=== PATIENT | male | born 1950 | race Caucasian/White ===

== ENCOUNTER 2020-02-14 10:06 | Observation (INO) ==
--- NOTE | 2020-01-12 09:48 | PAT Medication Instructions ---
Medication Instructions Date of Service January 12, 2020 Home Medications aspirin [Aspir-81] 81 mg PO Q OTHER DAY atorvastatin 10 mg PO PM cholecalciferol (vitamin D3) [Vitamin D3] 50 mcg PO PM coenzyme Q10 [Co Q-10] 100 mg PO PM lisinopril-hydrochlorothiazide 1 tab PO QAM meloxicam 15 mg PO QAM omega-3 fatty acids [Fish Oil Concentrate] 1,000 mg PO PM Continue as directed aspirin [Aspir-81] 81 mg PO Q OTHER DAY ASK your surgeon for instructions meloxicam 15 mg PO QAM STOP taking 2 weeks before surgery (or as soon as possible if surgery is within 2 weeks) coenzyme Q10 [Co Q-10] 100 mg PO PM omega-3 fatty acids [Fish Oil Concentrate] 1,000 mg PO PM DO NOT take the morning of surgery lisinopril-hydrochlorothiazide 1 tab PO QAM Take evening before surgery atorvastatin 10 mg PO PM cholecalciferol (vitamin D3) [Vitamin D3] 50 mcg PO PM Other Notes If you have any questions please call us at [phone] or [phone] or [phone] or [phone]
--- NOTE | 2020-01-16 07:54 | History & Physical Report ---
Date of Service January 16, 2020 date of surgery: 02/14/20 procedure: Left Total Knee Arthroplasty Assessment & Plan (1) Arthritis of knee, left: Risks and benefits of procedure discussed in detail today, patient would like to proceed with a Left total knee replacement at [facility] as scheduled. will obtain medical clearance from Dr Trejo as well as cardiac clearance from Dr Muse prior to surgery as well as obtain PATs at [facility]. Will place on ASA 81mg po bid x 1 month post op, f/u 2 weeks post op for routine post-operative care and x-ray, sooner if having any problems. will make arrangements for HHPT at the time of discharge. At this point in time, has fail ed conservative measures and would like to proceed with surgical intervention. History of Present Illness Chief Complaint: left knee pain Primary Care Provider: Eliot Neil Zhou is a 69 year old male who complains of left knee pain, presents for pre- op evaluation prior to a left total knee replacement by dr Perez at [facility]. He complains of pain, decreased range of motion, instability and stiffness in his left knee. He states that the symptoms have been chronic and non-traumatic. He states that the symptoms occur constantly with intermittent worsening. Currently the patient states that the symptoms are moderate-severe. The pain is described as aching, sharp and throbbing. The symptoms occur continuously. The symptoms are aggravated by ascending stairs, daily activities, first steps while awake walking. Prior NSAIDs include Ibuprofen, Aleve and Meloxicam. Prior pain medications include Tylenol. He has been treated with previous visco injections including Euflexxa in the past without much relief. Allergies Allergy/AdvReac Type Severity Reaction Status Date / Time No Known Allergies Allergy Verified 01/06/20 10:20 Home Medications Home Medications Medication Instructions Recorded Confirmed Type aspirin [Aspir-81] 81 mg PO Q OTHER DAY 01/06/20 01/06/20 History atorvastatin 10 mg PO PM 01/06/20 01/06/20 History cholecalciferol (vitamin D3) 50 mcg PO PM 01/06/20 01/06/20 History [Vitamin D3] coenzyme Q10 [Co Q-10] 100 mg PO PM 01/06/20 01/06/20 History lisinopril-hydrochlorothiazide 1 tab PO QAM 01/06/20 01/06/20 History meloxicam 15 mg PO QAM 01/06/20 01/06/20 History omega-3 fatty acids [Fish Oil 1,000 mg PO PM 01/06/20 01/06/20 History Concentrate] Past Med/Surg History Medical History BPH (benign prostatic hyperplasia) NO MEDS Excessive bleeding HAS BEEN TESTED FOR CLOTTING DISORDERS OVER THE YRS > NO FINDINGS. DOES BLEED/BRUSE VERY EASILY GERD (gastroesophageal reflux disease) MILD NO MEDS Hyperlipidemia Takes statin for preventive measures- minimal cholesterol elevation Hypertension Surgical History History of appendectomy History of cardiac cath 25 YRS AGO> NO STENTS History of colonoscopy History of esophagogastroduodenoscopy (EGD) History of tonsillectomy History of tooth extraction Hx of inguinal hernia repair Skin cancer WITH REMOVAL FROM NOSE/EAR Family History Mother Diabetes Social History Smoking Status: Former smoker Smoking End Date: 25 YRS AGO; Second Hand Exposure: No; Do You Dip or Chew Tobacco: No; Tobacco Cessation Education Requested by Patient: No Hx Alcohol Use: No Hx Substance Use: No Preferred Language: Polish Communication Ability: Effective Auto Wrecker Required: No Beliefs That Will Affect Care: None Current Living Situation: Spouse Other Information That Helps Us Care for You: No Feels Safe at Home: Yes Safety Concerns: Feels Safe At This Time Assistive Devices: Glasses Assistive Devices Comment: PARTIALS TO TOP AND BOTTOM Review of Systems Review of Systems: All systems reviewed & are unremarkable except as noted in HPI & below Constitutional: no fever, no chills and no sweats Respiratory: no cough and no dyspnea Cardiovascular: no chest pain, no dyspnea and no orthopnea Gastrointestinal: no abdominal pain, no nausea and no vomiting Musculoskeletal: as per Subjective / HPI Physical Exam Physical Exam: Ht: 6ft Wt: 105.7kg BP: 124/78 Constitutional: WD/WN, vitals as above no acute distress Respiratory: normal respiratory effort, lungs clear to auscultation no respiratory distress, no labored breathing and does not use accessory muscles Cardiovascular: RRR, no murmur, no edema Gastrointestinal (Abdomen): normal bowel sounds, soft, nontender, no hepatosplenomegaly Musculoskeletal: Knee: + knee abnormal to inspection (Left knee: ), + effusion (+1 effusion), + limited ROM of knee (ROM 0/3/110), + knee ROM with crepitation, + joint line tenderness (medial joint line) and + Teri's sign positive; no deformity, no skin erythema, no ecchymosis, no valgus laxity, no varus laxity, anterior drawer test negative, Candida's sign negative and pivot shift test negative Results & Data Results & Data ([facility]) Laboratory Results Laboratory Results WBC 6.58 K/uL (4.8-10.8) 01/16/20 11:54 RBC 5.38 M/uL (4.7-6.1) 01/16/20 11:54 Hgb 16.1 g/dL (14.0-18.0) 01/16/20 11:54 Hct 47.9 % (42-52) 01/16/20 11:54 MCV 89.0 fL (80-100) 01/16/20 11:54 MCH 29.9 pg (25-34) 01/16/20 11:54 MCHC 33.6 g/dL (32-36) 01/16/20 11:54 RDW Std Deviation 42.0 fL (36.4-46.3) 01/16/20 11:54 RDW Coeff of Malini 12.9 % (11.5-14.5) 01/16/20 11:54 Plt Count 251 K/uL (130-400) 01/16/20 11:54 MPV 9.8 fL (7.4-10.4) 01/16/20 11:54 Immature Gran % (Auto) 0.2 % 01/16/20 11:54 Neut % (Auto) 63.4 % 01/16/20 11:54 Lymph % (Auto) 25.1 % 01/16/20 11:54 Coles % (Auto) 7.8 % 01/16/20 11:54 Eos % (Auto) 3.2 % 01/16/20 11:54 Baso % (Auto) 0.3 % 01/16/20 11:54 Neut # (Auto) 4.18 K/uL (1.4-6.5) 01/16/20 11:54 Lymph # (Auto) 1.65 K/uL (1.2-3.4) 01/16/20 11:54 Coles # (Auto) 0.51 K/uL (0.11-0.59) 01/16/20 11:54 Eos # (Auto) 0.21 K/uL (0-0.5) 01/16/20 11:54 Baso # (Auto) 0.02 K/uL (0-0.2) 01/16/20 11:54 Immature Gran # (Auto) 0.01 K/uL (0.00-0.02) 01/16/20 11:54 PT 10.9 Seconds (9.0-12.0) 01/16/20 11:54 INR 1.0 (0.9-1.1) 01/16/20 11:54 APTT 28.6 Seconds (21.0-31.0) 01/16/20 11:54 PTT Ratio 1.0 01/16/20 11:54 Sodium 140 mmol/L (136-145) 01/16/20 11:54 Potassium 4.9 mmol/L (3.5-5.1) 01/16/20 11:54 Chloride 106 mmol/L (98-107) 01/16/20 11:54 Carbon Dioxide 32 mmol/L (21-32) 01/16/20 11:54 Anion Gap 2.0 (3-11) L 01/16/20 11:54 BUN 15 mg/dl (7-18) 01/16/20 11:54 Creatinine 1.19 mg/dl (0.6-1.4) 01/16/20 11:54 Est Cr Clr Drug Dosing 73.6 ml/min 01/16/20 11:54 Est GFR ( Amer) 71.8 01/16/20 11:54 Est GFR (Non-Af Amer) 62.0 01/16/20 11:54 BUN/Creatinine Ratio 12.3 (10-20) 01/16/20 11:54 Glucose 99 mg/dl (70-99) 01/16/20 11:54 Estimat Average Glucose 117 mg/dl 01/16/20 11:54 Hemoglobin A1c 5.7 % (4.5-5.6) H 01/16/20 11:54 Calcium 9.5 mg/dl (8.5-10.1) 01/16/20 11:54 Albumin 3.7 gm/dl (3.4-5.0) 01/16/20 11:54 Urine Color Yellow 01/16/20 11:54 Urine Appearance Clear (Clear) 01/16/20 11:54 Urine pH 7.0 (4.5-7.5) 01/16/20 11:54 Ur Specific [place] 1.009 (1.000-1.030) 01/16/20 11:54 Urine Protein Negative (Negative) 01/16/20 11:54 Urine Glucose (UA) Negative (Negative) 01/16/20 11:54 Urine Ketones Negative (Negative) 01/16/20 11:54 Urine Blood Negative (Negative) 01/16/20 11:54 Urine Nitrite Negative (Negative) 01/16/20 11:54 Urine Bilirubin Negative (Negative) 01/16/20 11:54 Urine Urobilinogen Negative (Negative) 01/16/20 11:54 Ur Leukocyte Esterase Negative (Negative) 01/16/20 11:54 Blood Type O Positive 01/16/20 11:54 Antibody Screen NEGATIVE 01/16/20 11:54 Diagnostic Findings Left Knee X-ray: left knee series confirm advanced degenerative changes to the left knee, greatest medial compartments and patellofemoral joint, showing joint space narrowing, osteophyte formation and subchondral sclerosis. no acute bony pathology noted.
--- NOTE | 2020-01-16 11:32 | Anesthesiology Consultation ---
Date of Service January 16, 2020 Assessment & Plan (1) Encounter for pre-operative examination: Chart Review Chart Review: Pending: Refer to Additional Notes / Consult section (pending surgeon ordered PCP and cardio clearances and preop Covid testing) Awaiting surgeon ordered PCP clearance (no date per patient) and cardio clearance (01/30) Per PAT appt on 01/16/20, pt resides in [facility]. Travels to [facility] to see son. No known Covid positive contacts or Covid related symptoms. Educated patient to follow up with surgeon's office regarding Covid testing. Educated on importance of self quarantining, social distancing and wearing mask in public both for the patient and household contacts. Teaching & Discussion Pre-Anesthesia Teaching/Discussion Notes: Instructed NPO after midnight before surgery,except medications with 15 cc of water. Medication instructions provided according to the PAT guidelines. History Surgery Operation Date: 02/14/20 07:15 Proposed Procedures p Left Total Knee Arthroplasty - Zhou Perez DO Height/Weight Height: 6 ft Weight: 105.7 kg Allergies Allergy/AdvReac Type Severity Reaction Status Date / Time No Known Allergies Allergy Verified 01/06/20 10:20 Medications Home Medications Medication Instructions Recorded Confirmed Last Taken aspirin [Aspir-81] 81 mg PO Q OTHER DAY 01/06/20 01/06/20 Unknown atorvastatin 10 mg PO PM 01/06/20 01/06/20 Unknown cholecalciferol (vitamin D3) 50 mcg PO PM 01/06/20 01/06/20 Unknown [Vitamin D3] coenzyme Q10 [Co Q-10] 100 mg PO PM 01/06/20 01/06/20 Unknown lisinopril-hydrochlorothiazide 1 tab PO QAM 01/06/20 01/06/20 Unknown meloxicam 15 mg PO QAM 01/06/20 01/06/20 Unknown omega-3 fatty acids [Fish Oil 1,000 mg PO PM 01/06/20 01/06/20 Unknown Concentrate] Past Medical History Medical History BPH (benign prostatic hyperplasia) NO MEDS Excessive bleeding HAS BEEN TESTED FOR CLOTTING DISORDERS OVER THE YRS > NO FINDINGS. DOES BLEE D/BRUSE VERY EASILY GERD (gastroesophageal reflux disease) MILD NO MEDS Hyperlipidemia Takes statin for preventive measures- minimal cholesterol elevation Hypertension Exercise / Class Metabolic Activity II 4-5 Yardwork/Stairs/Walk up hill (one flight of stairs - no chest pain or SOB) Past Family History Family History Mother Diabetes Past Surgical History Surgical History History of appendectomy History of cardiac cath 25 YRS AGO> NO STENTS History of colonoscopy History of esophagogastroduodenoscopy (EGD) History of tonsillectomy History of tooth extraction Hx of inguinal hernia repair Skin cancer WITH REMOVAL FROM NOSE/EAR Past Anesthesia History No Hx of Anesthesia Complications and No Family Hx of Anesthesia Complications History of PONV No Hx of PONV and No Hx of Motion Sickness Social History Smoking Status: Former smoker Do You Dip or Chew Tobacco: No Smoking End Date: 25 YRS AGO Hx Alcohol Use: No Hx Substance Use: No substance use type: does not use Review of Systems Occ SOB- ongoing/chronic - stable Occ snoring - no witnessed apnea- no hx of sleep study Patient denies chest pain, cough, wheezing, palpitations. No hx of seizures, stroke, IN, apnea/snoring. No hx of blood clots or blood transfusions Physical Exam Vital Signs VITALS BP 133/83 P 73 TEMP 97.5 SP02 96% RESP 16 Constitutional no acute distress ENMT Mouth: no TMJ clicking Thyromental Distance: < 3.5 Finger Breadths (3.0) Mallampati Class: III Top and bottom partial dentures Neck + limited neck extension (minimal ) Respiratory normal respiratory effort; no respiratory distress Auscultation: lungs clear to auscultation bilaterally; no wheezes Cardiovascular Rate/Rhythm: regular rate and regular rhythm Heart Sounds: no murmur Vessels: no carotid bruit Musculoskeletal Spine: + pain with cervical ROM (minimal) Neurologic moves all extremities Psychiatric Orientation: alert Testing Laboratory Results 01/16/20 11:54 01/16/20 11:54 PT 10.9 Seconds (9.0-12.0) 01/16/20 11:54 INR 1.0 (0.9-1.1) 01/16/20 11:54 APTT 28.6 Seconds (21.0-31.0) 01/16/20 11:54 Hemoglobin A1c 5.7 % (4.5-5.6) H 01/16/20 11:54 Urine Color Yellow 01/16/20 11:54 Urine Appearance Clear (Clear) 01/16/20 11:54 Urine pH 7.0 (4.5-7.5) 01/16/20 11:54 Ur Specific [place] 1.009 (1.000-1.030) 01/16/20 11:54 Urine Protein Negative (Negative) 01/16/20 11:54 Urine Glucose (UA) Negative (Negative) 01/16/20 11:54 Urine Ketones Negative (Negative) 01/16/20 11:54 Urine Nitrite Negative (Negative) 01/16/20 11:54 Ur Leukocyte Esterase Negative (Negative) 01/16/20 11:54 Blood Type O Positive 01/16/20 11:54 Antibody Screen NEGATIVE 01/16/20 11:54 Electrocardiogram Date: 01/16/20 Sinus rhythm with first-degree AV block at 61 bpm. Minimal voltage criteria for LVH, may be normal variant. Chest X-Ray Date: 01/16/20 Findings: + NAD
[2020-01-16 12:26] LABS: Basophils # (auto) 0.02 K/uL (0-0.2); Basophils % (auto) 0.3 %; Eosinophils # (auto) 0.21 K/uL (0-0.5); Eosinophils % (auto) 3.2 %; Hematocrit (blood only) 47.9 % (42-52); Hemoglobin 16.1 g/dL (14.0-18.0); Immature Granulocytes # (auto) 0.01 K/uL (0.00-0.02); Immature Granulocytes % (auto) 0.2 %; Lymphocytes # (auto) 1.65 K/uL (1.2-3.4); Lymphocytes % (auto) 25.1 %; Mean Corpuscular Hemoglobin 29.9 pg (25-34); Mean Corpuscular Hgb Conc 33.6 g/dL (32-36); Mean Platelet Volume 9.8 fL (7.4-10.4); Monocytes # (auto) 0.51 K/uL (0.11-0.59); Monocytes % (auto) 7.8 %; Neutrophils # (auto) 4.18 K/uL (1.4-6.5); Neutrophils % (auto) 63.4 %; Platelet Count 251 K/uL (130-400); RDW Coefficient of Variation 12.9 % (11.5-14.5); Red Blood Count 5.38 M/uL (4.7-6.1); White Blood Count 6.58 K/uL (4.8-10.8)
[2020-01-16 12:28] LABS: Appearance Urine Clear (Clear); Bilirubin Urine Negative (Negative); Blood Urine Negative (Negative); Color Urine Yellow; Glucose Urine UA Negative (Negative); Ketones Urine Negative (Negative); Leukocyte Esterase Urine Negative (Negative); Nitrite Urine Negative (Negative); Protein Urine Negative (Negative); Specific Gravity Urine 1.009 (1.000-1.030); Urobilinogen Urine Negative (Negative)
--- NOTE | 2020-01-16 12:31 | XRay Report ---
XR chest Pre-admission PA/Lat CLINICAL HISTORY: Preoperative chest COMPARISON STUDY: No previous studies for comparison. FINDINGS: The cardiac and mediastinal contours are normal. There is no evidence of focal pulmonary co nsolidation. There is no evidence of failure. No pleural effusions are visualized.[ IMPRESSION: No active disease in the chest. ACT 112: Negative or not required by law. Electronically signed by: Jayme Connolly M.D. 01/16/2020 12:30 PM
[2020-01-16 12:35] LABS: Albumin Level 3.7 gm/dl (3.4-5.0); BUN Creatinine Ratio 12.3 (10-20); Calcium 9.5 mg/dl (8.5-10.1); Creatinine Clr Calc Pharmacy 73.6 ml/min; Est GFR (African American) 71.8; Potassium 4.9 mmol/L (3.5-5.1)
[2020-01-16 12:38] LABS: Partial Thromboplastin Time 28.6 Seconds (21.0-31.0); Prothrombin Time 10.9 Seconds (9.0-12.0)
[2020-01-16 12:50] LABS: Estimated Average Glucose 117 mg/dl; Hemoglobin A1C 5.7 % (4.5-5.6)
--- NOTE | 2020-01-17 15:35 | Electrocardiogram Report ---
Test Reason : Blood Pressure : / mmHG Vent. Rate : 061 BPM Atrial Rate : 061 BPM P-R Int : 210 ms QRS Dur : 086 ms QT Int : 440 ms P-R-T Axes : 042 -21 022 degrees QTc Int : 442 ms Sinus rhythm with 1st degree A-V block Minimal voltage criteria for LVH, may be normal variant Borderline ECG No previous ECGs available Confirmed by Chace Perez ([id number]) on 01/17/2020 3:35:10 PM Referred By: Zhou Perez Confirmed By:Chace Perez
[~2020-02-14 10:06] MED LIST: ACETAMINOPHEN 500 MG TAB PO SCH; BUPIVACAINE 0.5 % 5 MG/1 ML PF 10ML VIAL ONE; BUPIVACAINE/EPINEPHRINE 0.25% 1:200,000 30 ML VIAL ONE; CeleBREX 200 MG CAP PO SCH; FAMOTIDINE 20 MG TAB PO SCH; GABAPENTIN 300 MG CAP PO SCH; LR 500ML BOLUS, THEN 15ML/HR IV SCH; METOCLOPRAMIDE HCL 10 MG TABLET PO SCH; ROPIVACAINE 0.5% HCL/PF 150 MG, BUPIVACAINE 0.5% MPF 30 ML, EPINEPHrine 30MG/30ML (OR U... INSTIL SCH; TRANEXAMIC ACID 1,000 MG **IV Intra-op IV SCH; TRANEXAMIC ACID 1,000 MG **IV Pre-op IV SCH; ceFAZolin 2000MG 2,000 MG/15 ML SYR IV SCH; dexAMETHasone 4 MG TAB PO SCH
[2020-02-14] MEDS ORDERED: LIDOCAINE HCL 2% 2 ML VIAL/AMP(20MG/ML) INFIL ONE (10:23)
[2020-02-14] MEDS ORDERED: DEXAMETHASONE SOD INJ 4 MG/ML VIAL ONE (10:23)
[2020-02-14] MEDS ORDERED: PROPOFOL IV EMULSION 10 MG/ML 20 ML VIAL IV ONE ×2 (10:23→13:50)
[2020-02-14] MEDS ORDERED: GLYCOPYRROLATE 0.2 MG/ML VIAL ONE (10:23)
[2020-02-14] MEDS ORDERED: ONDANSETRON INJ 2 MG/ML 2 ML VIAL ONE (10:23)
[2020-02-14] MEDS ORDERED: MIDAZOLAM HCL 1 MG/ML 2ML VIAL ONE (10:24)
--- NOTE | 2020-02-14 10:48 | History & Physical Bridge Note ---
Date of Service February 14, 2020 History & Physical Bridge Note I have examined the patient, reviewed the History & Physical and in the interval since the performance of the History & Physical I have noted the following changes of clinical significance: no changes noted
[2020-02-14] MEDS ORDERED: fentaNYL citrate 100 MCG/2 ML VIAL IV PRN (12:13)
[2020-02-14] MEDS ORDERED: ATROPINE SULFATE 0.1 MG/ML 10ML SYR IV PRN (12:13)
[2020-02-14] MEDS ORDERED: ePHEDrine sulfate 50 MG/ML AMP IV PRN (12:13)
[2020-02-14] MEDS ORDERED: HYDROmorphone INJ 2 MG/ML SYR/VIAL IV PRN (12:13)
[2020-02-14] MEDS ORDERED: ONDANSETRON INJ 2 MG/ML 2 ML VIAL IV PRN ×2 (12:13→15:56)
[2020-02-14] MEDS ORDERED: BACITRACIN INJ 50,000 UNIT VIAL ONE (12:27)
[2020-02-14] MEDS ORDERED: ORTHO JOINT ANESTHETIC ONE (12:27)
--- NOTE | 2020-02-14 13:48 | Operative Report ---
Post Operative Report Pre & Post Diagnosis Operation Date: 02/14/20 12:20 Pre-Op Diagnosis: Unilateral Primary Osteoarthritis Knee Right Post-Op Diagnosis: Unilateral Primary Osteoarthritis Knee Right I identified the patient and participated in the time-out.: Yes Procedure Operation Date: 02/14/20 12:20 Actual Procedures p Left Total Knee Arthroplasty(Left) utilizing [employer] NephPacerPro journey 2 patient matched total knee arthroplasty size 6 femur size 6 tibia size 9 polyethylene/38 oval patella- Zhou Perez DO Surgeon Zhou Perez DO [employer]ir[employer] ZHOU Estimated Blood Loss 5 Findings Consistent with Post-Op Diagnosis Patient presents with severe end-stage tricompartmental degenerative joint disease left knee with [id number] eburnated bone marginal osteophyte subchondral sclerosis with subchondral cystic changes moderate large effusion Specimens Bone and cartilage Drains Medium bore Hemovac Anesthesia Type MAC Spinal Regional Complications none Disposition Accompanied Patient To Recovery: No Disposition: Recovery Room Indications Patient presents with severe end-stage tricompartmental degenerative joint disease left knee nonresponse to conservative management patient failed times a corticosteroid injection Visco supplementation relative rest activity modification bracing physical therapy the above intraoperative findings were noted Description of Procedure After proper prepping and draping of the left lower extremity anterior midline incision was made over the region of the extensor extensor mechanism after meticulous hemostasis was obtained and maintained in subcutaneous tissues a medial parapatellar incision was made The patella was subluxed lateralward the medial lateral gutter were cleaned from any hypertrophic synovitis and scar tissue of the distal femoral block was placed and the distal femoral osteotomy cut was made subsequently the chamfers anterior and posterior osteotomy cuts were made utilizing the 4-in-1 block the tibia was subsequently subluxed anteriorward medial and ateral meniscal remnants were excised in their entirety remnants of the anterior and posterior cruciate ligaments were excised in their entirety excellent exposure of the proximal tibia was obtained the tibial osteotomy guide was placed on the proximal tibial osteotomy cut was made once again the knee was irrigated with copious amounts of sterile saline solution the patella was subsequently everted lateralward thickened scar tissue around the patella was removed the patella was subsequently cut utilizing a freehand technique and was drilled prepared for final preparation and placement of patella socially flexion-extension gaps were checked and the equal and symmetric trials were placed to the appropriate femoral and tibial trials with poly-spacer being placed for equal flexion and extension gaps and full range of motion including extension to 0 and flexion to 140 the trial components after having been taken to recovery range of motion was subsequently removed meticulous hemostasis was obtained and maintained subsequently a knee block injection of joint cocktail including ropivacaine 0.5% 150 mg. Bupivacaine 0.5% epinephrine 1-200,030 mL's toradol 30 mg dexamethasone 4 mg ketamine 10 mg clonidine 100 micrograms normal saline solution 30 mg was infiltrated into the soft tissues of the posterior knee medial lateral gutters and periosteal synovium special attention was paid to protect neurovascular structures at all times subsequently trial components having been removed the knee was irrigated with sterile saline solution. debris was removed the proximal tibia was subsequently prepared and was made ready for the placement of the tibial component tibial component was also cemented and tamped into position the femoral component was subsequently placed and cemented in the position the patellar component was subsequently cemented in position because hemostasis once again obtained and maintained wound having been thoroughly irrigated with debridement and debridement lavage was performed as well as a medial parapatellar incision closed with #1 Vicryl in interrupted fashion subcutaneous was closed with #2 Vicryl skin was closed with skin clips. PA-C was necessary for prepping and drapping as well as wound closure of deep fascia Sub cutaneous tissue and skin and was necessary for the case. A sterile compressive dressing was placed patient was taken to recovery in stable condition of report dictated by Chris I attest to the content of the Intraoperative Record and any orders documented therein. Any exceptions are noted below. I attest to the content of the Intraoperative Record and any orders documented therein. Any exceptions are noted below.
--- NOTE | 2020-02-14 14:47 | XRay Report ---
LEFT KNEE 2 VIEWS History: Left total knee arthroplasty. Degenerative arthritis. Postop. FINDINGS: The patient is status post a left total knee arthroplasty. The hardware is intact. No fract ure or dislocation. Skin jose and surgical drains are in place. IMPRESSION: Left total knee arthroplasty. No evidence for hardware complication. ACT 112: Negative or not required by law. Electronically signed by: Damon Ngo M.D. 02/14/2020 2:45 PM
[2020-02-14] MEDS ORDERED: bisacodyL 10 MG SUPP PR PRN (15:56)
[2020-02-14] MEDS ORDERED: oxyCODONE HCL IR 5 MG TAB (IMMEDIATE RELEASE) PO PRN (15:56)
[2020-02-14] MEDS ORDERED: diphenhydrAMINE Capsule 25 MG CAP PO PRN (15:56)
[2020-02-14] MEDS ORDERED: METOCLOPRAMIDE HCL INJ 5 MG/ML 2 ML VIAL IV PRN (15:56)
[2020-02-14] MEDS ORDERED: NALOXONE HCL 0.4 MG/1 ML VIAL/CARP IV PRN (15:56)
[2020-02-14] MEDS ORDERED: MAGNESIUM HYDROXIDE SUSP 30 ML UDC PO PRN (15:56)
[2020-02-14] MEDS ORDERED: HYDROmorphone INJ 1 MG/ML SYRINGE IV PRN (15:56)
--- NOTE | 2020-02-14 15:58 | Anesthesiology Progress Note ---
Date of Service February 14, 2020 Anesthesia Post Procedure Vital Signs Vital Signs: Temp Pulse Pulse Resp BP BP Pulse Ox 02/14/20 15:30 66 18 103/61 96 02/14/20 15:20 36.8 C 65 19 107/72 98 02/14/20 15:10 70 21 106/69 97 02/14/20 15:00 72 19 108/77 95 02/14/20 14:50 63 19 117/72 95 02/14/20 14:40 74 21 99/65 L 94 02/14/20 14:30 79 20 97/71 L 92 02/14/20 14:24 36.4 C L 86 17 105/67 93 02/14/20 11:29 36.5 C 71 18 114/69 96 02/14/20 10:49 37.3 C 81 18 137/97 98 Transfer of Care Handoff Completed per policy Notes Mental Status: alert / awake / arousable Patient Amnestic to Procedure: Yes Nausea / Vomiting: adequately controlled Pain: adequately controlled Airway Patency, RR, SpO2: stable & adequate BP & HR: stable & adequate Hydration State: stable & adequate Anesthetic Complications: no major complications apparent
[2020-02-14] MEDS: ACETAMINOPHEN 500 MG TAB PO SCH ×2 (18:00→22:56)
[2020-02-14] MEDS: KETOROLAC TROMETHAMINE 15 MG/ML VIAL IV SCH ×2 (18:01→22:56)
[2020-02-14] MEDS: SODIUM CHLORIDE 0.9% 1000ML 1,000 ML IV SCH (18:02)
[2020-02-14] MEDS ORDERED: CHOLECALCIFEROL 1,000 UNITS 25 MCG TAB PO SCH (21:00)
[2020-02-14] MEDS ORDERED: SENNA 8.6 MG TAB PO SCH (21:00)
[2020-02-14] MEDS ORDERED: ATORVASTATIN 10 MG TAB PO SCH (21:00)
[2020-02-14] MEDS: ceFAZolin 2000MG 2,000 MG/15 ML SYR IV SCH (21:49)
[2020-02-14] MEDS: ASPIRIN 81 MG ECTAB PO SCH (21:49)
[2020-02-14] MEDS: DOCUSATE SODIUM 100 MG CAP PO SCH (21:50)
[2020-02-15] MEDS: SODIUM CHLORIDE 0.9% 1000ML 1,000 ML IV SCH (04:17)
[2020-02-15] MEDS: ACETAMINOPHEN 500 MG TAB PO SCH ×2 (05:32→14:14)
[2020-02-15] MEDS: ceFAZolin 2000MG 2,000 MG/15 ML SYR IV SCH (05:32)
[2020-02-15] MEDS: KETOROLAC TROMETHAMINE 15 MG/ML VIAL IV SCH ×2 (05:32→12:18)
[2020-02-15 08:07] LABS: Hematocrit (blood only) 39.7 % (42-52); Hemoglobin 13.9 g/dL (14.0-18.0); Mean Corpuscular Hemoglobin 30.2 pg (25-34); Mean Corpuscular Volume 86.3 fL (80-100); Mean Platelet Volume 9.7 fL (7.4-10.4); Platelet Count 231 K/uL (130-400); RDW Coefficient of Variation 12.7 % (11.5-14.5); RDW Standard Deviation 40.4 fL (36.4-46.3); White Blood Count 15.01 K/uL (4.8-10.8)
[2020-02-15 08:39] LABS: BUN Creatinine Ratio 16.8 (10-20); Calcium 8.9 mg/dl (8.5-10.1); Creatinine Clr Calc Pharmacy 73.1 ml/min; Est GFR (African American) 71.8; Potassium 4.3 mmol/L (3.5-5.1)
[2020-02-15] MEDS ORDERED: LISINOPRIL/HCTZ 20/12.5MG 1 TAB TAB PO SCH (09:00)
[2020-02-15] MEDS ORDERED: MULTIVITAMIN TAB PO SCH (09:00)
[2020-02-15] MEDS: ASPIRIN 81 MG ECTAB PO SCH (09:15)
[2020-02-15] MEDS: DOCUSATE SODIUM 100 MG CAP PO SCH (09:15)
--- NOTE | 2020-02-15 10:08 | Orthopedic Progress Note ---
Date of Service February 15, 2020 Assessment & Plan (1) Arthritis of knee, left: Postop day 1 status post left total knee arthroplasty. Leukocytosis-likely due to preoperative steroids and surgical stress. Patient currently asymptomatic. PT/OT protocols. Weightbearing as tolerated. DVT prophylaxis-aspirin p.o. twice daily, SCDs, REENA mcnulty. Pain management as written. Discharge planning-patient is planning for outpatient PT upon discharge Admission and Anticipated Discharge Date Admission Date: February 14, 2020 Subjective Postop day 1 Patient is finishing up his physical therapy session. He is sitting at the bedside. Physical therapist that he did exceptionally well. Pain control is currently excellent. Denies any shortness of breath, chest pain, ligh theadedness. Physical Exam Physical Exam: Dressings are clean, dry, and intact. Calves are soft nontender. Neurovascular is intact. Toes are mobile. He has good dorsiflexion and plantarflexion of the left foot. Hemovac drainage was 50 mL from the previous shift. Results & Data ([facility]) Vital Signs (Past 12 Hours) Vital Signs Temp Pulse Resp BP Pulse Ox 02/15/20 07:30 36.8 C 61 14 122/70 94 02/15/20 03:04 36.4 C L 62 18 119/68 94 02/14/20 23:32 36.5 C 63 18 131/73 95 Laboratory Results Laboratory Results WBC 15.01 K/uL (4.8-10.8) H 02/15/20 07:51 RBC 4.60 M/uL (4.7-6.1) L 02/15/20 07:51 Hgb 13.9 g/dL (14.0-18.0) L 02/15/20 07:51 Hct 39.7 % (42-52) L 02/15/20 07:51 MCV 86.3 fL (80-100) 02/15/20 07:51 MCH 30.2 pg (25-34) 02/15/20 07:51 MCHC 35.0 g/dL (32-36) 02/15/20 07:51 RDW Std Deviation 40.4 fL (36.4-46.3) 02/15/20 07:51 RDW Coeff of Malini 12.7 % (11.5-14.5) 02/15/20 07:51 Plt Count 231 K/uL (130-400) 02/15/20 07:51 MPV 9.7 fL (7.4-10.4) 02/15/20 07:51 Immature Gran % (Auto) 0.2 % 01/16/20 11:54 Neut % (Auto) 63.4 % 01/16/20 11:54 Lymph % (Auto) 25.1 % 01/16/20 11:54 [place] % (Auto) 7.8 % 01/16/20 11:54 Eos % (Auto) 3.2 % 01/16/20 11:54 Baso % (Auto) 0.3 % 01/16/20 11:54 Neut # (Auto) 4.18 K/uL (1.4-6.5) 01/16/20 11:54 Lymph # (Auto) 1.65 K/uL (1.2-3.4) 01/16/20 11:54 [place] # (Auto) 0.51 K/uL (0.11-0.59) 01/16/20 11:54 Eos # (Auto) 0.21 K/uL (0-0.5) 01/16/20 11:54 Baso # (Auto) 0.02 K/uL (0-0.2) 01/16/20 11:54 Immature Gran # (Auto) 0.01 K/uL (0.00-0.02) 01/16/20 11:54 PT 10.9 Seconds (9.0-12.0) 01/16/20 11:54 INR 1.0 (0.9-1.1) 01/16/20 11:54 APTT 28.6 Seconds (21.0-31.0) 01/16/20 11:54 PTT Ratio 1.0 01/16/20 11:54 Sodium 131 mmol/L (136-145) L 02/15/20 07:51 Potassium 4.3 mmol/L (3.5-5.1) 02/15/20 07:51 Chloride 101 mmol/L (98-107) 02/15/20 07:51 Carbon Dioxide 24 mmol/L (21-32) 02/15/20 07:51 Anion Gap 6.0 (3-11) 02/15/20 07:51 BUN 20 mg/dl (7-18) H 02/15/20 07:51 Creatinine 1.19 mg/dl (0.6-1.4) 02/15/20 07:51 Est Cr Clr Drug Dosing 73.1 ml/min 02/15/20 07:51 Est GFR ( Amer) 71.8 02/15/20 07:51 Est GFR (Non-Af Amer) 62.0 02/15/20 07:51 BUN/Creatinine Ratio 16.8 (-20) 02/15/20 07:51 Glucose 123 mg/dl (70-99) H 02/15/20 07:51 Estimat Average Glucose 117 mg/dl 01/16/20 11:54 Hemoglobin A1c 5.7 % (4.5-5.6) H 01/16/20 11:54 Calcium 8.9 mg/dl (8.5-10.1) 02/15/20 07:51 Albumin 3.7 gm/dl (3.4-5.0) 01/16/20 11:54 Urine Color Yellow 01/16/20 11:54 Urine Appearance Clear (Clear) 01/16/20 11:54 Urine pH 7.0 (4.5-7.5) 01/16/20 11:54 Ur Specific [place] 1.009 (1.000-1.030) 01/16/20 11:54 Urine Protein Negative (Negative) 01/16/20 11:54 Urine Glucose (UA) Negative (Negative) 01/16/20 11:54 Urine Ketones Negative (Negative) 01/16/20 11:54 Urine Blood Negative (Negative) 01/16/20 11:54 Urine Nitrite Negative (Negative) 01/16/20 11:54 Urine Bilirubin Negative (Negative) 01/16/20 11:54 Urine Urobilinogen Negative (Negative) 01/16/20 11:54 Ur Leukocyte Esterase Negative (Negative) 01/16/20 11:54 Hepatitis C Ab Screen Neg (Neg) 02/15/20 07:51 Blood Type O Positive 01/16/20 11:54 Antibody Screen NEGATIVE 01/16/20 11:54
[2020-02-15] MEDS ORDERED: CeleBREX 200 MG CAP PO SCH (21:00)
--- NOTE | 2020-02-17 09:00 | Discharge Summary ---
Date of Service date of discharge: February 15, 2020 date of admission: 02-14-20 Admission HPI Per Admitting Provider Zhou is a 69 year old male who complains of left knee pain, presents for pre- op evaluation prior to a left total knee replacement by dr Perez at [facility]. He complains of pain, decreased range of motion, instability and stiffness in his left knee. He states that the symptoms have been chronic and non-traumatic. He states that the symptoms occur constantly with intermittent worsening. Currently the patient states that the symptoms are moderate-severe. The pain is described as aching, sharp and throbbing. The symptoms occur continuously. The symptoms are aggravated by ascending stairs, daily activities, first steps while awake walking. Prior NSAIDs include Ibuprofen, Aleve and Meloxicam. Prior pain medications include Tylenol. He has been treated with previous visco injections including Euflexxa in the past without much relief. Principal Diagnosis left knee arthritis Discharge Exam Constitutional WD/WN, vitals as above no acute distress Respiratory normal respiratory effort, lungs clear to auscultation no respiratory distress, no labored breathing and does not use accessory muscles Cardiovascular RRR, no murmur, no edema Gastrointestinal (Abdomen) normal bowel sounds, soft, nontender, no hepatosplenomegaly Musculoskeletal left knee: NVDI, calf SNT, negative rosario sign. DP palpable, able to wiggle toes/ankle movement without difficulty. [place] dressing clean dry and intact. expected post-operative bruising noted. Discharge Data Allergies Allergy/AdvReac Type Severity Reaction Status Date / Time No Known Allergies Allergy Verified 02/14/20 10:38 Consultations 02/14/20 15:56 Consult Case Management - Discharge Planning Routine Procedures Performed Operation Date: 02/14/20 12:20 Actual Procedures p Left Total Knee Arthroplasty(Left) - Zhou Perez DO Ordered Studies 02/14/20 05:00 US - OR guided needle placemen Routine Hospital Course (1) Arthritis of knee, left: Postop day 1 status post left total knee arthroplasty. Leukocytosis-likely due to preoperative steroids and surgical stress. Patient currently asymptomatic. PT/OT protocols. Weightbearing as tolerated. DVT prophylaxis-aspirin p.o. twice daily, SCDs, REENA hose. Pain management as written. Discharge planning-patient is planning for outpatient PT upon discharge Total Time Total Time Spent Total Time Spent (In Minutes): 20 Total Time Includes: Examination of the Patient, Discharge Planning and Medication Reconciliation Discharge Plan Discharge Items Patient Disposition: Home - Self-Care Reason For Visit: Unilateral Primary Osteoarthritis Knee Right Discharge Diagnosis: Osteoarthritis right knee Activity: Per Instructions section Weightbearing: Left weightbearing Weightbearing Comment: As tolerated with walker Non-emergency contact: Surgeon Call non-emergency contact if: your pain is not controlled, your temperature is above 101.5, your wound has increased redness and your wound has increased drainage Follow-up/Referrals: Eliot Trejo [Primary Care Provider] - Diet: Regular Addtl Attending Provider Instructions: ACTIVITY RECOMMENDATIONS: SELF CARE INSTRUCTIONS AFTER TOTAL KNEE REPLACEMENT A. You may need to continue a physical therapy program after discharge from the hospital. There are several options available to you. Your doctor will assist you in selecting the best one for you. 1. An out-patient facility 2 to 3 times a week for therapy or home therapy. 2. Continue working on all exercises taught to you in the hospital. Your goals should be to increase bending of your knee to 90 degrees and beyond and to fully straighten your knee. B. You may progress at your own pace from walking with a walker or crutches to a cane; then to no assistive devices. C. Make walking a part of your daily routine. Be up as much as comfortable with rest periods throughout the day. Rest with leg elevation is very important. Use the ice wrap frequently for the first 3-4 weeks. D. There are no restrictions on activities. You may ride in a car, shop, participate in consignee and all social activities. E. Wear the long elastic stockings (REENA hose) 20 hours a day for 2 weeks after surgery. They can be removed several times a day for laundering and for a bath. F. You may shower, no tub baths until cleared by your doctor. SPECIAL CARE INSTRUCTIONS: VERY IMPORTANT TO READ AND REVIEW A. There are a few signs you need to watch for after you are home. Call [facility] if you notice any of the followin. Increased severe knee pain. Some pain is expected especially when you exercise. 2. Increased swelling in your leg or knee; pain or swelling of the calf muscle in either lower leg. 3. Any fluid drainage from the incision. 4. Shortness of breath or chest pain. B. Please call [facility] at if you have any concerns or questions about your operation or recovery. The doctor or his nurse will return your call promptly. C. You must take antibiotics before dental work, bladder, bowel or other s urgery. Your doctor will provide you with a permanent care to carry describing this precaution. IMPORTANT: * REMEMBER TO TAKE ASPIRIN, 81 MG, TWICE DAILY FOR 4 WEEKS UNLESS OTHERWISE DIRECTED. THIS IS YOUR BLOOD THINNER. * CALL IF INCREASED PAIN, REDNESS, DRAINAGE OR FEVER GREATER THAT 101. * WEAR REENA HOSE 20 HOURS PER DAY FOR 2 WEEKS. * [place] Dressing- This is a large suction dressing covering your incision. This will help pull any excess drainage from the wound and allow your incision to heal properly. You may shower with this if you can keep the unit outside of the shower. If any bleeding or leakage is noted please call your doctor's office. This will remain on your incision for 7 days and then should be removed. This can be done yourself or by the home nursing staff if applicable. The entire unit is disposable once removed. Once removed, keep incision clean and dry. If redness or drainage is noted, please call your surgeon. IF INCISION IS LEAKING THROUGH DRESSING, CALL THE OFFICE . FOLLOW UP VISIT: If appointment is not already scheduled: Please call [facility] to make a follow-up appointment for 2 weeks after your surgery at . Stand-Alone Forms: [facility] HearMeOut, Opioid Pain Management, Smoking Cessation Medications and DC Order Prescriptions: New aspirin 81 mg Tablet,Delayed Release (Dr/Ec) 81 mg PO BID 30 Days Qty: 60 RF: 0 acetaminophen 500 mg Tablet 1,000 mg PO Q8 14 Days Qty: 84 RF: 0 cefadroxil 500 mg capsule 500 mg PO BID Qty: 14 RF: 0 oxycodone 5 mg Tablet 5 mg PO Q4H MDD 6 PRN (Reason: pain) Qty: 30 RF: 0 polyethylene glycol 3350 [Miralax] 17 gram powder in packet 17 g PO DAILY PRN (Reason: constipation) Qty: 5 RF: 0 celecoxib [Celebrex] 200 mg Capsule 200 mg PO BID 30 Days Qty: 60 RF: 0 Continued atorvastatin 10 mg Tablet 10 mg PO PM RF: 0 lisinopril-hydrochlorothiazide 20-12.5 mg Tablet 1 tab PO QAM RF: 0 coenzyme Q10 [Co Q-10] 100 mg Capsule 100 mg PO PM RF: 0 cholecalciferol (vitamin D3) [Vitamin D3] 50 mcg (2,000 unit) Capsule 50 mcg PO PM RF: 0 Discontinued omega-3 fatty acids [Fish Oil Concentrate] 1,000 mg Capsule 1,000 mg PO PM RF: 0 meloxicam 15 mg Tablet 15 mg PO QAM RF: 0 aspirin [Aspir-81] 81 mg Tablet,Delayed Release (Dr/Ec) 81 mg PO Q OTHER DAY RF: 0 Discharge Orders: Discharge Order (Routine); Ordered 02/15/20 Ordered By: Hammad De La Fuente/Other Patient Handouts: DVT Post Op Prevention Admission Data Admit Date/Time: 02/14/20 14:34 Attending Provider: Zhou Perez Admit Provider: Zhou Perez Primary Care Provider: Eliot Trejo Other Interventions: Discharge Summary Assessment (RN) Last Done: 02/15/20 12:56
== END 2020-02-15 14:36 | disposition home or self-care (01) ==
LOC: 3N 10:06 → ASU 10:06

== ENCOUNTER 2020-06-05 09:48 | Observation (INO) ==
--- NOTE | 2020-05-31 15:54 | Anesthesiology Consultation ---
Date of Service May 31, 2020 Assessment & Plan (1) Encounter for pre-operative examination: COVID Status: As of 05/31 nurse assessment, patient denies travel to endemic area, known exposure/sick contacts, or symptoms of COVID19. He was + for covid- 19 around 2019. Symptoms at the time were low grade fever, aches, headache for 3 days. Fully recovered. Preoperative COVID19 testing completed on 05/31 at [facility], results pending. Patient seen in [facility] 12/2019 for LEFT TKA. Had cardiology and primary care clearances prior to surgery, and surgical/anesthetic course uneventful. SAB x 1 attempt, no complications. Lab work updated 05/31/20 at [facility]. No BMP received, may still be pending. If no BMP received, will order for DOS. Chart Review Chart Review: Acceptable Risk for Surgery and Patient NOT seen in Pre Admission Testing History Surgery Operation Date: 06/05/20 13:00 Proposed Procedures p Right Total Knee Arthroplasty - Zhou Perez DO Height/Weight Height: 6 ft Weight: 99.79 kg Allergies Allergy/AdvReac Type Severity Reaction Status Date / Time No Known Allergies Allergy Verified 05/31/20 11:23 Medications Home Medications Medication Instructions Recorded Confirmed Last Taken atorvastatin 10 mg PO HS 01/06/20 05/31/20 02/13/20 21:30 cholecalciferol (vitamin D3) 50 mcg PO PM 01/06/20 05/31/20 02/13/20 21:30 [Vitamin D3] coenzyme Q10 [Co Q-10] 100 mg PO PM 01/06/20 05/31/20 1 Week Ago ~02/07/20 lisinopril-hydrochlorothiazide 1 tab PO QAM 01/06/20 05/31/20 02/13/20 06:45 acetaminophen [Tylenol Extra 500 mg PO Q6H PRN 05/31/20 05/31/20 Unknown Strength] ascorbic acid (vitamin C) [Super C] 500 mg PO QPM 05/31/20 05/31/20 Unknown aspirin [Aspir-81] 81 mg PO QAM 05/31/20 05/31/20 Unknown carvedilol 3.125 mg PO BID 05/31/20 05/31/20 Unknown cefadroxil 500 mg PO BID PRN 05/31/20 05/31/20 Unknown psyllium [Metamucil] 1 packet PO QAM 05/31/20 05/31/20 Unknown Past Medical History Medical History CAD (coronary artery disease) Possible nonobstructive CAD by cath in [place] per cardio note. CAD only by elevated calcium score in 2017-F/U DR LANDY BRANCH Enlarged prostate Excessive bleeding HAS BEEN TESTED FOR CLOTTING DISORDERS OVER THE YRS > NO FINDINGS. DOES BLEED/BRUSE VERY EASILY-PER PT HAS NOT BEEN AN ISSUE RECENTLY GERD (gastroesophageal reflux disease) MILD NO MEDS Hiatal hernia History of COVID-19 DX'D 2019-LOW GRADE FEVER, ACHY, HEADACHE X 3 DAYS-RECOVERED Hyperlipidemia Takes statin for preventive measures- minimal cholesterol elevation Hypertension Osteoarthritis Past Family History Family History Mother Diabetes Past Surgical History Surgical History History of appendectomy History of cardiac cath 25 YRS AGO> NO STENTS History of colonoscopy History of esophagogastroduodenoscopy (EGD) History of tonsillectomy History of tooth extraction History of total knee replacement LEFT 01/2020 [facility] Hx of inguinal hernia repair Skin cancer WITH REMOVAL FROM NOSE/EAR Social History Smoking Status: Former smoker Do You Dip or Chew Tobacco: No Smoking End Date: QUIT 25-30 YRS AGO Hx Alcohol Use: No Hx Substance Use: No substance use type: does not use Testing Laboratory Results 05/31/20 WBC: 6.66 H/H: 14.9/43.2 PLATELETS: 264 PT: 12.1 PTT: 33.9 INR: 1.05 UA: WNL Electrocardiogram Date: 01/16/20 Sinus rhythm with first-degree AV block at 61 bpm. Minimal voltage criteria for LVH, may be normal variant. Chest X-Ray Date: 01/16/20 Findings: + NAD
--- NOTE | 2020-06-01 18:09 | History & Physical Report ---
Date of Service June 01, 2020 date of surgery: 06/05/20 procedure: Right Total Knee Arthroplasty Assessment & Plan (1) Arthritis of right knee: Risks and benefits of procedure discussed in detail today, patient would like to proceed with a right total knee replacement at [facility] as scheduled. will obtain medical clearance from Dr Trejo as well as cardiac clearance from Dr Muse prior to surgery as well as obtain PATs at [facility]. Will place on ASA 81mg po bid x 1 month post op, f/u 2 weeks post op for routine post-operative care and x-ray, sooner if having any problems. will make arrangements for HHPT at the time of discharge. At this point in time, has fail ed conservative measures and would like to proceed with surgical intervention. History of Present Illness Chief Complaint: Right knee pain Primary Care Provider: Eliot Epperson is a 70 year old male who complains of Right knee pain, presents for pre-op evaluation prior to a Right total knee replacement by dr Perez at [facility]. He complains of pain, decreased range of motion, instability and stiffness in his rightt knee. He states that the symptoms have been chronic and non- traumatic. He states that the symptoms occur constantly with intermittent worsening. Currently the patient states that the symptoms are moderate-severe. The pain is described as aching, sharp and throbbing. The symptoms occur continuously. The symptoms are aggravated by ascending stairs, daily activities, first steps while awake walking. Prior NSAIDs include Ibuprofen, Aleve and Meloxicam. Prior pain medications include Tylenol. He has been treated with previous visco injections including Euflexxa in the past without much relief. Allergies Allergy/AdvReac Type Severity Reaction Status Date / Time No Known Allergies Allergy Verified 05/31/20 11:23 Home Medications Medication Instructions Recorded Confirmed Type atorvastatin 10 mg PO HS 01/06/20 05/31/20 History cholecalciferol (vitamin D3) 50 mcg PO PM 01/06/20 05/31/20 History [Vitamin D3] coenzyme Q10 [Co Q-10] 100 mg PO PM 01/06/20 05/31/20 History lisinopril-hydrochlorothiazide 1 tab PO QAM 01/06/20 05/31/20 History acetaminophen [Tylenol Extra 500 mg PO Q6H PRN 05/31/20 05/31/20 History Strength] ascorbic acid (vitamin C) [Super C] 500 mg PO QPM 05/31/20 05/31/20 History aspirin [Aspir-81] 81 mg PO QAM 05/31/20 05/31/20 History carvedilol 3.125 mg PO BID 05/31/20 05/31/20 History cefadroxil 500 mg PO BID PRN 05/31/20 05/31/20 History psyllium [Metamucil] 1 packet PO QAM 05/31/20 05/31/20 History Past Med/Surg History Medical History CAD (coronary artery disease) Possible nonobstructive CAD by cath in [place] per cardio note. CAD only by elevated calcium score in 2017-F/U DR LANDY BRANCH Enlarged prostate Excessive bleeding HAS BEEN TESTED FOR CLOTTING DISORDERS OVER THE YRS > NO FINDINGS. DOES BLEE D/BRUSE VERY EASILY-PER PT HAS NOT BEEN AN ISSUE RECENTLY GERD (gastroesophageal reflux disease) MILD NO MEDS Hiatal hernia History of COVID-19 DX'D 2019-LOW GRADE FEVER, ACHY, HEADACHE X 3 DAYS-RECOVERED Hyperlipidemia Takes statin for preventive measures- minimal cholesterol elevation Hypertension Osteoarthritis Surgical History History of appendectomy History of cardiac cath 25 YRS AGO> NO STENTS History of colonoscopy History of esophagogastroduodenoscopy (EGD) History of tonsillectomy History of tooth extraction History of total knee replacement LEFT 01/2020 [facility] Hx of inguinal hernia repair Skin cancer WITH REMOVAL FROM NOSE/EAR Family History Mother Diabetes Social History Smoking Status: Former smoker Smoking End Date: QUIT 25-30 YRS AGO; Second Hand Exposure: Yes (PARENTS SMOKED); Do You Dip or Chew Tobacco: No; Hx Alcohol Use: No Hx Substance Use: No Preferred Language: [place] Communication Ability: Effective Water Fitness Instructor Required: No Beliefs That Will Affect Care: None marital status: Current Living Situation: Spouse Other Information That Helps Us Care for You: No Feels Safe at Home: Yes Safety Concerns: Feels Safe At This Time Assistive Devices: Denture - Upper, Denture - Lower and Glasses Assistive Devices Comment: PARTIALS Review of Systems Review of Systems: All systems reviewed & are unremarkable except as noted in HPI & below Constitutional: no fever, no chills and no sweats Respiratory: no cough and no dyspnea Cardiovascular: no chest pain, no dyspnea and no orthopnea Gastrointestinal: no abdominal pain, no nausea and no vomiting Musculoskeletal: as per Subjective / HPI Physical Exam Constitutional: WD/WN, vitals as above no acute distress Respiratory: normal respiratory effort, lungs clear to auscultation no respiratory distress, no labored breathing and does not use accessory muscles Cardiovascular: RRR, no murmur, no edema Gastrointestinal (Abdomen): normal bowel sounds, soft, nontender, no hepatosplenomegaly Musculoskeletal: Knee: + knee abnormal to inspection (Right Knee), + effusion (+1 effusion), + limited ROM of knee (ROM 0/3/110), + knee ROM with crepitation, + joint line tenderness (medial joint line) and + Teri's sign positive; no deformity, no skin erythema, no ecchymosis, no valgus laxity, no varus laxity, anterior drawer test negative, Candida's sign negative and pivot shift test negative exam above in relation to patients right knee: Results & Data Results & Data ([facility]) Diagnostic Findings Right Knee X-ray: Right knee series showing advanced degenerative changes to the right knee, narrowing of the medial compartment and patello-femoral joint with patellar spurring noted, findings showing joint space narrowing of the medial compartment and patello-femoral joint, osteophyte formation and subchondral sclerosis noted. overall varus alignment. no acute bony pathology noted.
[~2020-06-05 09:48] MED LIST changes: +BUPIVACAINE 0.25% 30 ML VIAL ONE; -BUPIVACAINE/EPINEPHRINE 0.25% 1:200,000 30 ML VIAL ONE; -ROPIVACAINE 0.5% HCL/PF 150 MG, BUPIVACAINE 0.5% MPF 30 ML, EPINEPHrine 30MG/30ML (OR U... INSTIL SCH; +ROPIVACAINE 0.5% HCL/PF 150 MG, BUPIVACAINE 0.75% MPF 20 ML, EPINEPHrine 30MG/30ML (OR ... INSTIL SCH
[2020-06-05] MEDS ORDERED: MIDAZOLAM HCL 1 MG/ML 2ML VIAL ONE (11:06)
[2020-06-05] MEDS ORDERED: fentaNYL citrate 100 MCG/2 ML VIAL ONE (11:07)
--- NOTE | 2020-06-05 11:33 | History & Physical Bridge Note ---
Date of Service June 05, 2020 History & Physical Bridge Note I have examined the patient, reviewed the History & Physical and in the interval since the performance of the History & Physical I have noted the following changes of clinical significance: no changes noted
[2020-06-05] MEDS ORDERED: ORTHO JOINT ANESTHETIC ONE (12:11)
[2020-06-05] MEDS ORDERED: BACITRACIN INJ 50,000 UNIT VIAL ONE (12:12)
[2020-06-05] MEDS ORDERED: ePHEDrine sulfate 50 MG/ML AMP IV PRN (13:15)
[2020-06-05] MEDS ORDERED: fentaNYL citrate 100 MCG/2 ML VIAL IV PRN (13:15)
[2020-06-05] MEDS ORDERED: ONDANSETRON INJ 2 MG/ML 2 ML VIAL IV PRN ×2 (13:15→17:22)
[2020-06-05] MEDS ORDERED: ATROPINE SULFATE 0.1 MG/ML 10ML SYR IV PRN (13:15)
[2020-06-05] MEDS ORDERED: PROPOFOL IV EMULSION 10 MG/ML 20 ML VIAL IV ONE (13:23)
[2020-06-05] MEDS ORDERED: LIDOCAINE HCL 2% 2 ML VIAL/AMP(20MG/ML) INFIL ONE (13:23)
[2020-06-05] MEDS ORDERED: ONDANSETRON INJ 2 MG/ML 2 ML VIAL ONE (13:23)
--- NOTE | 2020-06-05 14:15 | Operative Report ---
Post Operative Report Pre & Post Diagnosis Operation Date: 06/05/20 12:35 Pre-Op Diagnosis: Unilateral Primary Osteoarthritis of Right Knee Post-Op Diagnosis: Unilateral Primary Osteoarthritis of Right Knee I identified the patient and participated in the time-out.: Yes Procedure Operation Date: 06/05/20 12:35 Actual Procedures p Right Total Knee Arthroplasty(Right) utilizing Pearson [employer] Nephew journey 2 nonblock total knee arthroplasty size 6 femur 6 tibia 9 polyethylene 38 oval patella- Zhou Perez DO Surgeon Zhou Perez DO Point Of Sale Associate Hammad ZHOU Estimated Blood Loss 5 Findings Consistent with Post-Op Diagnosis Patient presents with severe end-stage tricompartmental degenerative joint disease nonresponsive to conservative management patient had varus alignment subchondral sclerosis subchondral cystic changes on the tibia marginal osteophytes moderate to large effusion varus alignment Specimens Bone and cartilage Drains Medium bore Hemovac Anesthesia Type MAC Spinal Regional Complications none Disposition Accompanied Patient To Recovery: No Disposition: Recovery Room Indications Patient presents with severe end-stage tricompartmental degenerative joint disease patient failed times a corticosteroid injection Visco supplementation relative rest activity modification patient presents for right total knee arthroplasty Description of Procedure After proper prepping and draping of the Right lower extremity anterior midline incision was made over the region of the extensor extensor mechanism after meticulous hemostasis was obtained and maintained in subcutaneous tissues a medial parapatellar incision was made The patella was subluxed lateralward the medial lateral gutter were cleaned from any hypertrophic synovitis and scar tissue of the distal femoral block was placed and the distal femoral osteotomy cut was made subsequently the chamfers anterior and posterior osteotomy cuts were made utilizing the 4-in-1 block the tibia was subsequently subluxed anteriorward medial and ateral meniscal remnants were excised in their entirety remnants of the anterior and posterior cruciate ligaments were excised in their entirety excellent exposure of the proximal tibia was obtained the tibial osteotomy guide was placed on the proximal tibial osteotomy cut was made once again the knee was irrigated with copious amounts of sterile saline solution the patella was subsequently everted lateralward thickened scar tissue around the patella was removed the patella was subsequently cut utilizing a freehand technique and was drilled prepared for final preparation and placement of patella socially flexion-extension gaps were checked and the equal and symmetric trials were placed to the appropriate femoral and tibial trials with poly-spacer being placed for equal flexion and extension gaps and full range of motion including extension to 0 and flexion to 140 the trial components after having been taken to recovery range of motion was subsequently removed meticulous hemostasis was obtained and maintained subsequently a knee block injection of joint cocktail including ropivacaine 0.5% 150 mg. Bupivacaine 0.5% epinephrine 1-200,030 mL's toradol 30 mg dexamethasone 4 mg ketamine 10 mg clonidine 100 micrograms normal saline solution 30 mg was infiltrated into the soft tissues of the posterior knee medial lateral gutters and periosteal synovium special attention was paid to protect neurovascular structures at all times subsequently trial components having been removed the knee was irrigated with sterile saline solution. debris was removed the proximal tibia was subsequently prepared and was made ready for the placement of the tibial component tibial component was also cemented and tamped into position the femoral component was subsequently placed and cemented in the position the patellar component was subsequently cemented in position because hemostasis once again obtained and maintained wound having been thoroughly irrigated with debridement and debridement lavage was performed as well as a medial parapatellar incision closed with #1 Vicryl in interrupted fashion subcutaneous was closed with #2 Vicryl skin was closed with skin clips. PA-C was necessary for prepping and drapping as well as wound closure of deep fascia Sub cutaneous tissue and skin and was necessary for the case. A sterile compressive dressing was placed patient was taken to recovery in stable condition of report dictated by Chris I attest to the content of the Intraoperative Record and any orders documented therein. Any exceptions are noted below. I attest to the content of the Intraoperative Record and any orders documented therein. Any exceptions are noted below.
--- NOTE | 2020-06-05 15:42 | XRay Report ---
RIGHT KNEE 2 VIEWS History: Right total knee arthroplasty. Degenerative arthritis. Postop. FINDINGS: The patient is status post a right total knee arthroplasty. The hardware is intact. No frac ture or dislocation. Surgical drains are in place. IMPRESSION: Right total knee arthroplasty. No evidence for hardware complication. ACT 112: Negative or not required by law. Electronically signed by: Damon Ngo M.D. 06/05/2020 3:40 PM
--- NOTE | 2020-06-05 16:26 | Anesthesiology Progress Note ---
Date of Service June 05, 2020 Anesthesia Post Procedure Vital Signs Vital Signs: Temp Pulse Resp BP Pulse Ox 06/05/20 16:20 62 20 122/78 98 06/05/20 16:10 66 17 122/82 97 06/05/20 16:00 62 22 106/79 99 06/05/20 15:50 68 19 104/75 99 06/05/20 15:40 68 20 105/81 98 06/05/20 15:30 65 19 114/78 96 06/05/20 15:20 63 15 108/75 95 06/05/20 15:10 71 13 109/68 97 06/05/20 15:00 36.5 C 79 12 115/71 92 06/05/20 11:29 36.9 C 78 18 131/90 95 Transfer of Care Handoff Completed per policy Notes Mental Status: alert / awake / arousable and participated in evaluation Patient Amnestic to Procedure: Yes Nausea / Vomiting: adequately controlled Pain: adequately controlled Airway Patency, RR, SpO2: stable & adequate BP & HR: stable & adequate Hydration State: stable & adequate Neuraxial Anesthesia: was administered and sensory block is resolving Anesthetic Complications: no major complications apparent and Pt Satisfied with anesthetic care
[2020-06-05] MEDS ORDERED: MAGNESIUM HYDROXIDE SUSP 30 ML UDC PO PRN (17:22)
[2020-06-05] MEDS ORDERED: NALOXONE HCL 0.4 MG/1 ML VIAL/CARP IV PRN (17:22)
[2020-06-05] MEDS ORDERED: bisacodyL 10 MG SUPP PR PRN (17:22)
[2020-06-05] MEDS ORDERED: HYDROmorphone INJ 0.5 MG/0.5 ML SYR IV PRN (17:22)
[2020-06-05] MEDS ORDERED: ATORVASTATIN 10 MG TAB PO SCH (21:00)
[2020-06-05] MEDS ORDERED: SENNA 8.6 MG TAB PO SCH (21:00)
[2020-06-05] MEDS ORDERED: NON-FORMULARY MEDICATION (Coenzyme Q10 [Co Q-10] 100 mg Capsule) PO SCH (21:00)
[2020-06-05] MEDS ORDERED: CHOLECALCIFEROL 1,000 UNITS 25 MCG TAB PO SCH (21:00)
[2020-06-05] MEDS: SODIUM CHLORIDE 0.9% 1000ML 1,000 ML IV SCH (21:19)
[2020-06-05] MEDS: FERROUS GLUCONATE 324 MG TAB PO SCH (21:20)
[2020-06-05] MEDS: DOCUSATE SODIUM 100 MG CAP PO SCH (21:20)
[2020-06-05] MEDS: carvediloL 3.125 MG TAB PO SCH (21:22)
[2020-06-05] MEDS: ASPIRIN 81 MG ECTAB PO SCH (21:22)
[2020-06-05] MEDS: ceFAZolin 2000MG 2,000 MG/15 ML SYR IV SCH (21:27)
[2020-06-05] MEDS: ACETAMINOPHEN 500 MG TAB PO SCH (21:27)
[2020-06-05] MEDS: oxyCODONE HCL IR 5 MG TAB (IMMEDIATE RELEASE) PO PRN (22:59)
[2020-06-06] MEDS: oxyCODONE HCL IR 5 MG TAB (IMMEDIATE RELEASE) PO PRN (04:02)
[2020-06-06] MEDS: ceFAZolin 2000MG 2,000 MG/15 ML SYR IV SCH (04:10)
[2020-06-06] MEDS: SODIUM CHLORIDE 0.9% 1000ML 1,000 ML IV SCH (05:16)
[2020-06-06 06:20] LABS: Hematocrit (blood only) 40.5 % (42-52); Hemoglobin 13.8 g/dL (14.0-18.0); Mean Corpuscular Hemoglobin 30.1 pg (25-34); Mean Corpuscular Hgb Conc 34.1 g/dL (32-36); Mean Corpuscular Volume 88.4 fL (80-100); Mean Platelet Volume 9.5 fL (7.4-10.4); Platelet Count 256 K/uL (130-400); RDW Coefficient of Variation 13.7 % (11.5-14.5); RDW Standard Deviation 44.5 fL (36.4-46.3); Red Blood Count 4.58 M/uL (4.7-6.1); White Blood Count 14.21 K/uL (4.8-10.8)
[2020-06-06] MEDS: ACETAMINOPHEN 500 MG TAB PO SCH (06:21)
[2020-06-06 06:58] LABS: BUN Creatinine Ratio 20.8 (10-20); Calcium 8.5 mg/dl (8.5-10.1); Creatinine Clr Calc Pharmacy 83.1 ml/min; Est GFR (African American) 85.9; Est GFR (Non-African American) 74.1; Potassium 4.5 mmol/L (3.5-5.1)
[2020-06-06] MEDS ORDERED: traMADol HCL 50 MG TABLET PO PRN (08:21)
--- NOTE | 2020-06-06 08:28 | Orthopedic Progress Note ---
Date of Service June 06, 2020 Assessment & Plan (1) Arthritis of right knee: Postop day 1 status post right total knee arthroplasty PT/OT protocols. Weightbearing as tolerated. DVT prophylaxis with aspirin p.o. twice daily, REENA Myers. Pain management-patient is leery of taking oxycodone. Will add tramadol to his pain regimen. Mild leukocytosis-patient asymptomatic at this time. Likely secondary to preoperative steroids and surgical stress. DC planning-patient is planning for outpatient PT upon discharge. Admission and Anticipated Discharge Date Admission Date: June 05, 2020 Subjective Patient awake and alert this morning. Having some discomfort around the knee this morning. Denies shortness of breath, chest pain, lightheadedness. Patient feels well this morning. Physical Exam Physical Exam: Dressings are clean, dry, and intact. Calves are soft nontender. Neurovascular is intact. Toes are mobile. He has good dorsiflexion plantarflexion noted. He has had 125 mL of drainage from the previous shift. Results & Data ([facility]) Vital Signs (Past 12 Hours) Vital Signs Temp Pulse Resp BP Pulse Ox 06/06/20 07:57 36.4 C L 65 16 117/68 95 06/06/20 04:00 36.5 C 65 15 101/55 L 94 06/05/20 22:47 36.3 C L 83 16 126/77 95 06/05/20 20:47 36.3 C L 86 16 114/65 95 Laboratory Results Laboratory Results WBC 14.21 K/uL (4.8-10.8) H 06/06/20 06:05 RBC 4.58 M/uL (4.7-6.1) L 06/06/20 06:05 Hgb 13.8 g/dL (14.0-18.0) L 06/06/20 06:05 Hct 40.5 % (42-52) L 06/06/20 06:05 MCV 88.4 fL (80-100) 06/06/20 06:05 MCH 30.1 pg (25-34) 06/06/20 06:05 MCHC 34.1 g/dL (32-36) 06/06/20 06:05 RDW Std Deviation 44.5 fL (36.4-46.3) 06/06/20 06:05 RDW Coeff of Malini 13.7 % (11.5-14.5) 06/06/20 06:05 Plt Count 256 K/uL (130-400) 06/06/20 06:05 MPV 9.5 fL (7.4-10.4) 06/06/20 06:05 Sodium 137 mmol/L (136-145) 06/06/20 06:05 Potassium 4.5 mmol/L (3.5-5.1) 06/06/20 06:05 Chloride 105 mmol/L (98-107) 06/06/20 06:05 Carbon Dioxide 27 mmol/L (21-32) 06/06/20 06:05 Anion Gap 5.0 (3-11) 06/06/20 06:05 BUN 21 mg/dl (7-18) H 06/06/20 06:05 Creatinine 1.02 mg/dl (0.6-1.4) 06/06/20 06:05 Est Cr Clr Drug Dosing 83.1 ml/min 06/06/20 06:05 Est GFR ( Amer) 85.9 06/06/20 06:05 Est GFR (Non-Af Amer) 74.1 06/06/20 06:05 BUN/Creatinine Ratio 20.8 (10-20) H 06/06/20 06:05 Glucose 129 mg/dl (70-99) H 06/06/20 06:05 Calcium 8.5 mg/dl (8.5-10.1) 06/06/20 06:05 Blood Type O Positive 06/05/20 10:50 Antibody Screen NEGATIVE 06/05/20 10:50
[2020-06-06] MEDS ORDERED: LISINOPRIL/HCTZ 20/12.5MG 1 TAB TAB PO SCH (09:00)
[2020-06-06] MEDS ORDERED: MULTIVITAMIN TAB PO SCH (09:00)
[2020-06-06] MEDS: ASPIRIN 81 MG ECTAB PO SCH (09:07)
[2020-06-06] MEDS: FERROUS GLUCONATE 324 MG TAB PO SCH (09:07)
[2020-06-06] MEDS: DOCUSATE SODIUM 100 MG CAP PO SCH (09:07)
[2020-06-06] MEDS: carvediloL 3.125 MG TAB PO SCH (09:07)
--- NOTE | 2020-06-07 13:19 | Discharge Summary ---
Date of Service June 07, 2020 Admission HPI Per Admitting Provider Zhou is a 70 year old male who complains of Right knee pain, presents for pre- op evaluation prior to a Right total knee replacement by dr Perez at [facility]. He complains of pain, decreased range of motion, instability and stiffness in his rightt knee. He states that the symptoms have been chronic and non-traumatic. He states that the symptoms occur constantly with intermittent worsening. Currently the patient states that the symptoms are moderate-severe. The pain is described as aching, sharp and throbbing. The symptoms occur continuously. The symptoms are aggravated by ascending stairs, daily activities, first steps while awake walking. Prior NSAIDs include Ibuprofen, Aleve and Meloxicam. Prior pain medications include Tylenol. He has been treated with previous visco injections including Euflexxa in the past without much relief. Admission Exam Per Admitting Provider Physical Exam Constitutional: WD/WN, vitals as above no acute distress Respiratory: normal respiratory effort, lungs clear to auscultation no respiratory distress, no labored breathing and does not use accessory muscles Cardiovascular: RRR, no murmur, no edema Gastrointestinal (Abdomen): normal bowel sounds, soft, nontender, no hepatosplenomegaly Musculoskeletal: Knee: + knee abnormal to inspection (Right Knee), + effusion (+1 effusion), + limited ROM of knee (ROM 0/3/110), + knee ROM with crepitation, + joint line tenderness (medial joint line) and + Teri's sign positive; no deformity, no skin erythema, no ecchymosis, no valgus laxity, no varus laxity, anterior drawer test negative, Candida's sign negative and pivot shift test negative exam above in relation to patients right knee: Principal Diagnosis Right Knee Osteoarthritis Discharge Data Allergies Allergy/AdvReac Type Severity Reaction Status Date / Time No Known Allergies Allergy Verified 06/05/20 10:58 Consultations 06/05/20 17:22 Consult Case Management - Discharge Planning Routine Procedures Performed Operation Date: 06/05/20 12:35 Actual Procedures p Right Total Knee Arthroplasty(Right) - Zhou Perez DO Ordered Studies 06/05/20 05:00 US - OR guided needle placemen Routine Hospital Course (1) Arthritis of right knee: Date of Service June 06, 2020 Pt progressed well in PT. VS remained stable. It was felt patient was stable for dc and was dc'd to home. Assessment & Plan (1) Arthritis of right knee: Postop day 1 status post right total knee arthroplasty PT/OT protocols. Weightbearing as tolerated. DVT prophylaxis with aspirin p.o. twice daily, REENA Myers. Pain management-patient is leery of taking oxycodone. Will add tramadol to his pain regimen. Mild leukocytosis-patient asymptomatic at this time. Likely secondary to preoperative steroids and surgical stress. DC planning-patient is planning for outpatient PT upon discharge. Admission and Anticipated Discharge Date Admission Date: June 05, 2020 Subjective Patient awake and alert this morning. Having some discomfort around the knee this morning. Denies shortness of breath, chest pain, lightheadedness. Patient feels well this morning. Physical Exam Physical Exam: Dressings are clean, dry, and intact. Calves are soft nontender. Neurovascular is intact. Toes are mobile. He has good dorsiflexion plantarflexion noted. He has had 125 mL of drainage from the previous shift. Results & Data ([facility]) Vital Signs (Past 12 Hours) Vital Signs Temp Pulse Resp BP Pulse Ox 06/06/20 07:57 36.4 C L 65 16 117/68 95 06/06/20 04:00 36.5 C 65 15 101/55 L 94 06/05/20 22:47 36.3 C L 83 16 126/77 95 06/05/20 20:47 36.3 C L 86 16 114/65 95 Laboratory Results Laboratory Results WBC 14.21 K/uL (4.8-10.8) H 06/06/20 06:05 RBC 4.58 M/uL (4.7-6.1) L 06/06/20 06:05 Hgb 13.8 g/dL (14.0-18.0) L 06/06/20 06:05 Hct 40.5 % (42-52) L 06/06/20 06:05 Total Time Total Time Spent Total Time Spent (In Minutes): 5 Discharge Plan Discharge Items Patient Disposition: Home - Self-Care Reason For Visit: Unilateral Primary Osteoarthritis of Right Knee Discharge Diagnosis: Osteoarthritis right knee Activity: Per Instructions section Weightbearing: Right weightbearing Weightbearing Comment: As tolerated with walker Non-emergency contact: Surgeon Call non-emergency contact if: your pain is not controlled, your temperature is above 101.5, your wound has increased redness and your wound has increased drainage Follow-up/Referrals: Eliot Trejo [Primary Care Provider] - Diet: Regular Addtl Attending Provider Instructions: ACTIVITY RECOMMENDATIONS: SELF CARE INSTRUCTIONS AFTER TOTAL KNEE REPLACEMENT A. You may need to continue a physical therapy program after discharge from the hospital. There are several options available to you. Your doctor will assist you in selecting the best one for you. 1. An out-patient facility 2 to 3 times a week for therapy or home therapy. 2. Continue working on all exercises taught to you in the hospital. Your goals should be to increase bending of your knee to 90 degrees and beyond and to fully straighten your knee. B. You may progress at your own pace from walking with a walker or crutches to a cane; then to no assistive devices. C. Make walking a part of your daily routine. Be up as much as comfortable with rest periods throughout the day. Rest with leg elevation is very important. Use the ice wrap frequently for the first 3-4 weeks. D. There are no restrictions on activities. You may ride in a car, shop, participate in chain sales consultant and all social activities. E. Wear the long elastic stockings (REENA hose) 20 hours a day for 2 weeks after surgery. They can be removed several times a day for laundering and for a bath. F. You may shower, no tub baths until cleared by your doctor. SPECIAL CARE INSTRUCTIONS: VERY IMPORTANT TO READ AND REVIEW A. There are a few signs you need to watch for after you are home. Call [facility] if you notice any of the followin. Increased severe knee pain. Some pain is expected especially when you exercise. 2. Increased swelling in your leg or knee; pain or swelling of the calf muscle in either lower leg. 3. Any fluid drainage from the incision. 4. Shortness of breath or chest pain. B. Please call [facility] at if you have any concerns or questions about your operation or recovery. The doctor or his nurse will return your call promptly. C. You must take antibiotics before dental work, bladder, bowel or other surgery. Your doctor will provide you with a permanent care to carry describing this precaution. IMPORTANT: * REMEMBER TO TAKE ASPIRIN, 81 MG, TWICE DAILY FOR 4 WEEKS UNLESS OTHERWISE DIRECTED. THIS IS YOUR BLOOD THINNER. * HIGH RISK PATIENTS MAY BE PRESCRIBED A STRONGER BLOOD THINNER. THIS WILL BE PROVIDED AT DISCHARGE. * CALL IF INCREASED PAIN, REDNESS, DRAINAGE OR FEVER GREATER THAT 101. * WEAR REENA HOSE 20 HOURS PER DAY FOR 2 WEEKS. *Change dressing daily for the first week. If dressing remains dry, you may change every other day starting her second week. Keep the wound covered until seen in the office. Please call the office with any questions about your wound. . FOLLOW UP VISIT: If appointment is not already scheduled: Please call [facility] to make a follow-up appointment for 2 weeks after your surgery at . Stand-Alone Forms: [employer], Smoking Cessation Medications and DC Order Prescriptions: New aspirin 81 mg Tablet,Delayed Release (Dr/Ec) 81 mg PO BID 30 Days Qty: 60 RF: 0 acetaminophen 500 mg Tablet 1,000 mg PO Q8 14 Days Qty: 84 RF: 0 oxycodone 5 mg Tablet 5 mg PO Q4H MDD 6 PRN (Reason: pain) Qty: 30 RF: 0 Continued atorvastatin 10 mg Tablet 10 mg PO HS RF: 0 lisinopril-hydrochlorothiazide 20-12.5 mg Tablet 1 tab PO QAM RF: 0 coenzyme Q10 [Co Q-10] 100 mg Capsule 100 mg PO PM RF: 0 cholecalciferol (vitamin D3) [Vitamin D3] 50 mcg (2,000 unit) Capsule 50 mcg PO PM RF: 0 psyllium Packet 1 packet PO QAM RF: 0 carvedilol 3.125 mg Tablet 3.125 mg PO BID RF: 0 cefadroxil 500 mg capsule 500 mg PO BID PRN (Reason: Unknown) RF: 0 ascorbic acid (vitamin C) 500 mg Tablet 500 mg PO QPM RF: 0 Discontinued acetaminophen [Tylenol Extra Strength] 500 mg Capsule 500 mg PO Q6H PRN (Reason: Pain) RF: 0 aspirin [Aspir-81] 81 mg Tablet,Delayed Release (Dr/Ec) 81 mg PO QAM RF: 0 Discharge Orders: Discharge Order (Routine); Ordered 06/06/20 Ordered By: Hammad Larsen Admission Data Admit Date/Time: 06/05/20 15:08 Attending Provider: Zhou Perez Admit Provider: Zhou Perez Primary Care Provider: Eliot Trejo Other Interventions: Discharge Summary Assessment (RN) Last Done: 06/06/20 12:38
== END 2020-06-06 14:45 | disposition home or self-care (01) ==
LOC: ASU 09:48 → 3E 09:48
DX: Z87.891 Personal history of nicotine dependence; Z79.82 Long term (current) use of aspirin; E78.5 Hyperlipidemia, unspecified; Z79.899 Other long term (current) drug therapy; M17.11 Unilateral primary osteoarthritis, right knee; Z96.652 Presence of left artificial knee joint; I10 Essential (primary) hypertension; Z86.16 Personal history of COVID-19; Z85.828 Personal history of other malignant neoplasm of skin